=== PATIENT | male | born 1960 | race Caucasian/White ===

== ENCOUNTER 2025-05-06 19:29 | Emergency (ER) | payer BC ==
--- NOTE | 2025-05-06 20:05 | ED ---
Allergic Reaction HPI - General Chief complaint: Allergic Reaction Stated complaint: Rash of right arm Time Seen by Provider: 05/06/25 20:04 Source: patient, family (), RN notes reviewed Mode of arrival: ambulatory Limitations: no limitations - History of Present Illness Initial Comments: 65-year-old male presented to the ER for evaluation of rash. Patient reports he was weed whacking in the yard when he broke out in a erythematous pruritic rash to bilateral lower extremities, groin, abdomen, bilateral upper extremities. Patient states he went in the house and took 2 Benadryl along with a shower and changed his clothing. Patient reports no tongue, lip, throat swelling or irritation. No difficulty breathing or wheezing. Patient denies any known allergies. No new soaps, lotion, foods or exposures. Patient denies any current pain. He does report after taking Benadryl there is mild improvement of rash. - Related Data Allergies Allergy/AdvReac Type Severity Reaction Status Date / Time sulfamethoxazole Allergy Rash/Hives Verified 05/06/25 19:37 [From Bactrim] trimethoprim [From Bactrim] Allergy Rash/Hives Verified 05/06/25 19:37 Review of Systems ROS Statement: Those systems with pertinent positive or pertinent negative responses have been documented in the HPI. ROS Other: All systems not noted in ROS Statement are negative. Past Medical History Past Medical History: Hypertension Past Surgical History: No Surgical Hx Reported Smoking Status: Never smoker Past Alcohol Use History: None Reported Past Drug Use History: Marijuana General Exam Limitations: no limitations General appearance: alert, in no apparent distress Respiratory exam: Present: normal lung sounds bilaterally. Absent: respiratory distress, wheezes, rales, rhonchi, stridor Cardiovascular Exam: Present: regular rate, normal rhythm, normal heart sounds. Absent: systolic murmur, diastolic murmur, rubs, gallop, clicks Neurological exam: Present: alert, oriented X3, CN II-XII intact Skin exam: Present: warm, dry, intact, normal color, rash (erythematous uticaria noted to bilateral upper and lower extremities, trunk, back and groin) Course Vital Signs 05/06/25 05/06/25 19:32 21:45 Temperature 97.9 F 98.1 F Pulse Rate 66 91 Respiratory 16 18 Rate Blood Pressure 137/87 138/79 O2 Sat by Pulse 100 99 Oximetry Medical Decision Making - Medical Decision Making Was pt. sent in by a medical professional or institution (, DARVIN, FOOD CART ATTENDANT, urgent care, hospital, or long-term...) When possible be specific @ -No Did you speak to anyone other than the patient for history (EMS, parent, family, police, friend...)? What history was obtained from this source @ -Patient's , bedside, aiding in HPI past medical history. Did you review nursing and triage notes (agree or disagree)? Why? @ -I reviewed and agree with nursing and triage notes Were old charts reviewed (outside hosp., previous admission, EMS record, old EKG, old radiological studies, urgent care reports/EKG's, long-term records)? Report findings @ -No old charts were reviewed Differential Diagnosis (chest pain, altered mental status, abdominal pain women, abdominal pain men, vaginal bleeding, weakness, fever, dyspnea, syncope, hea dache, dizziness, GI bleed, back pain, seizure, CVA, palpatations, mental health, musculoskeletal)? @ -uticaria, allergic reaction, anaphylaxis, contact dermatitis, cellulitis... This list is not meant to be all-inclusive EKG interpreted by me (3pts min.). @ -None done X-rays interpreted by me (1pt min.). @ -None done CT interpreted by me (1pt min.). @ -None done U/S interpreted by me (1pt. min.). @ -None done What testing was considered but not performed or refused? (CT, X-rays, U/S, labs)? Why? @ -None What meds were considered but not given or refused? Why? @ -IV Benadryl considered however patient took 50 mg of Benadryl prior to arrival. Did you discuss the management of the patient with other professionals (professionals i.e. , DARVIN, FOOD CART ATTENDANT, lab, RT, psych nurse, outreach and education social worker, propeller tester, teacher, port patrol officer, pillowcase maker)? Give summary @ -No Was smoking cessation discussed for >3mins.? @ -No Was critical care preformed (if so, how long)? @ -No Were there social determinants of health that impacted care today? How? (Homelessness, low income, unemployed, alcoholism, drug addiction, transportation, low edu. Level, literacy, decrease access to med. care, senior care, rehab)? @ -No Was there de-escalation of care discussed even if they declined (Discuss DNR or withdrawal of care, Hospice)? DNR status @ -No What co-morbidities impacted this encounter? (DM, HTN, Smoking, COPD, CAD, Cancer, CVA, ARF, Chemo, Hep., AIDS, mental health diagnosis, sleep apnea, morbid obesity)? @ -None Was patient admitted / discharged? Hospital course, mention meds given and route, prescriptions, significant lab abnormalities, going to OR and other pertinent info. @ -Discharge. 65-year-old male presented to the ER for evaluation of a rash. Vital signs stable. Patient no signs acute distress nontoxic-appearing. There is an erythematous uticaria rash noted on exam consistent with allergic reaction. There is no difficulty breathing or wheezing. No tongue lip or throat, swelling. Patient was provided with IV Solu-Medrol and Pepcid and observed in the emergency department. After observation patient was reevaluated and rash appears to be improved. Patient reporting no difficulty breathing and is comfortable with discharge at this time. I instructed patient to continue taking Benadryl over the next 24 to 48 hours and follow-up closely with PCP. Strict return parameters discussed. Patient discharged stable condition. Patient and patient's verbally expressed understanding and agreement with care plan. Case discussed with ED attending, Dr. Garcia. Undiagnosed new problem with uncertain prognosis? @ -No Drug Therapy requiring intensive monitoring for toxicity (Heparin, Nitro, Insulin, Cardizem)? @ -No Were any procedures done? @ -No Diagnosis/symptom? @ -Allergic reaction Acute, or Chronic, or Acute on Chronic? @ -Acute Uncomplicated (without systemic symptoms) or Complicated (systemic symptoms)? @ -Uncomplicated Side effects of treatment? @ -No Exacerbation, Progression, or Severe Exacerbation? @ -No Poses a threat to life or bodily function? How? (Chest pain, [place], [place], pneumonia, PE, COPD, DKA, ARF, appy, cholecystitis, CVA, Diverticulitis, Homicidal, Suicidal, threat to staff... and all critical care pts) @ -Low at this time can lead to anaphylaxis Disposition Clinical Impression: Allergic reaction Disposition: HOME SELF-CARE Condition: Stable Instructions (If sedation given, give patient instructions): Anaphylaxis (ED) Additional Instructions: Continue Benadryl for the next 24 hours. Return to the ER for any new or worsening concerns. Is patient prescribed a controlled substance at d/c from ED?: No Referrals: Stan Encarnacion MD [Primary Care Provider] - 1-2 days Time of Disposition: 21:37
[2025-05-06] MEDS: FAMOTIDINE 20 MG/2 ML VIAL IV STA (20:47)
[2025-05-06] MEDS: methylPREDNISolone SOD SUCCI 125 MG/2 ML VIAL IV STA (20:47)
[2025-05-06 21:46] VITALS: BP 138/79; PULSE 91; RESP 18; TEMP 98.1
== END 2025-05-06 21:46 | disposition home or self-care (01) ==
LOC: EC 19:29
DX: T78.40XA Allergy, unspecified, initial encounter (principal); Z88.1 Allergy status to other antibiotic agents; Z88.2 Allergy status to sulfonamides
CPT/HCPCS: 96374; 96375; 99282; 99283